=== PATIENT | female | born 1985 | race Caucasian/White ===

== ENCOUNTER 2017-01-08 23:01 | Emergency (ER) | payer OTHER ==
[~2017-01-08] VITALS: Ht 170.1 cm; Wt 86.2 kg
[~2017-01-08 23:01] MED LIST: ALBUTEROL0.09 MG/A2 IH; ALLEGRA180 MG PO; AMOXICILLIN500 MG PO; AMOXIL500 MG PO; ANAPROX DS550 MG PO; ASPIR-LOW81 MG PO; AUGMENTIN 875875 MG PO; BACTRIM DS 8001 TA1 PO; CIPRO500 MG PO; CLARITIN10 MG PO; CLINDAMYCIN HC300 MG PO; CYCLOBENZAPRINE5 M3 PO; DEPO PROVER150 MG/ML IM; DIFLUCAN100 MG PO; DIFLUCAN150 MG PO; DOXYCYCLINE100 MG PO; FLAGYL500 MG; FLEXERIL10 MG PO; FLONASE ALLERG9.9 ML NAS; FLONASE0.05 MG/AC NS; FLOVENT HFA12 GM IH; IBU-8800 MG PO; KEFLEX500 MG PO; LEVOFLOXACIN500 MG PO; MEDROL DOSEPAK4 MG PO; MOTRIN800 MG PO; NAPROXEN550 MG PO; NORCO 325 MG-51 TAB PO; PREDNISONE20 M1 PO; PREDNISONE20 MG PO; PREDNISONE50 MG PO; PROAIR RESPICL90 MCG INH; ROBITUSSIN AC 110 ML PO; SUDAFED60 MG PO; VICODIN 5-3001 EACH PO; VICODIN 5/500 505 MG PO; VICODIN 500 MG-1 TAB PO; VITAMIN C500 MG PO; ZOFRAN ODT4 MG SL; ZOVIRAX800 MG PO; [UNRECOGNIZED DRUG - REMARK]
[2017-01-08] MEDS ORDERED: CYCLOBENZAPRINE10 MG PO (23:12)
== END 2017-01-09 01:53 | disposition home or self-care (01) ==
LOC: ED 23:01
DX: S00.83XA Contusion of other part of head, initial encounter (principal); R03.0 Elevated blood-pressure reading, without diagnosis of hypertension; F17.200 Nicotine dependence, unspecified, uncomplicated; Z91.041 Radiographic dye allergy status; Z88.6 Allergy status to analgesic agent; Z91.040 Latex allergy status; W50.0XXA Accidental hit or strike by another person, initial encounter; Y93.89 Activity, other specified; Y92.89 Other specified places as the place of occurrence of the external cause; Y99.8 Other external cause status

== ENCOUNTER 2017-05-21 11:07 | Emergency (ER) | payer OTHER ==
[~2017-05-21] VITALS: Ht 170.1 cm; Wt 97.5 kg
[~2017-05-21 11:07] MED LIST changes: +CYCLOBENZAPRINE10 MG PO
[2017-05-21] MEDS ORDERED: MEDROL DOSEPAK4 MG PO (11:41)
[2017-05-21] MEDS ORDERED: NAPROSYN500 MG PO (11:41)
[2017-05-21] MEDS ORDERED: ORPHENADRINE E100 MG PO (11:41)
== END 2017-05-21 12:19 | disposition home or self-care (01) ==
LOC: ED 11:07
DX: S39.012A Strain of muscle, fascia and tendon of lower back, initial encounter (principal); F17.200 Nicotine dependence, unspecified, uncomplicated; Z98.890 Other specified postprocedural states; Z98.51 Tubal ligation status; Z91.040 Latex allergy status; Z88.6 Allergy status to analgesic agent; Z88.8 Allergy status to other drugs, medicaments and biological substances; Z91.041 Radiographic dye allergy status; X58.XXXA Exposure to other specified factors, initial encounter; Y93.89 Activity, other specified; Y92.89 Other specified places as the place of occurrence of the external cause; Y99.9 Unspecified external cause status

== ENCOUNTER 2018-01-27 14:08 | Emergency (ER) | payer OTHER ==
[~2018-01-27] VITALS: Ht 170.1 cm; Wt 108.9 kg
[~2018-01-27 14:08] MED LIST changes: +NAPROSYN500 MG PO; +ORPHENADRINE E100 MG PO
[2018-01-27] MEDS ORDERED: AUGMENTIN 875875 MG PO (14:42)
[2018-01-27] MEDS ORDERED: [UNRECOGNIZED DRUG - OTHER] IM (16:26)
== END 2018-01-27 16:32 | disposition home or self-care (01) ==
LOC: ED
DX: S61.451A Open bite of right hand, initial encounter (principal); F17.200 Nicotine dependence, unspecified, uncomplicated; Z23 Encounter for immunization; Z98.890 Other specified postprocedural states; Z98.51 Tubal ligation status; Z79.899 Other long term (current) drug therapy; Z91.041 Radiographic dye allergy status; Z91.040 Latex allergy status; Z88.6 Allergy status to analgesic agent; W54.0XXA Bitten by dog, initial encounter; Y93.89 Activity, other specified; Y92.89 Other specified places as the place of occurrence of the external cause; Y99.9 Unspecified external cause status

== ENCOUNTER 2018-01-30 09:04 | Emergency (ER) | payer OTHER ==
[~2018-01-30] VITALS: Ht 350.5 cm; Wt 108.9 kg
[~2018-01-30 09:04] MED LIST changes: +[UNRECOGNIZED DRUG - OTHER] IM
== END 2018-01-30 09:47 | disposition home or self-care (01) ==
LOC: ED 09:04
DX: Z23 Encounter for immunization (principal); R03.0 Elevated blood-pressure reading, without diagnosis of hypertension; J45.909 Unspecified asthma, uncomplicated; Z91.041 Radiographic dye allergy status; Z91.040 Latex allergy status; Z88.6 Allergy status to analgesic agent

== ENCOUNTER 2018-02-03 20:55 | Emergency (ER) | payer SELFPAY ==
[~2018-02-03] VITALS: Ht 162.5 cm; Wt 122.5 kg
== END 2018-02-03 21:11 | disposition home or self-care (01) ==
LOC: ED 20:55
DX: Z23 Encounter for immunization (principal); Z98.51 Tubal ligation status; Z98.890 Other specified postprocedural states; Z79.899 Other long term (current) drug therapy; Z91.040 Latex allergy status; Z91.041 Radiographic dye allergy status; Z88.6 Allergy status to analgesic agent; Z88.8 Allergy status to other drugs, medicaments and biological substances

== ENCOUNTER 2018-02-10 18:44 | Emergency (ER) | payer SELFPAY ==
[~2018-02-10] VITALS: Ht 170.1 cm; Wt 108.9 kg
[2018-02-10] MEDS ORDERED: CELEXA20 MG PO (19:28)
== END 2018-02-10 19:30 | disposition home or self-care (01) ==
LOC: ED 18:44
DX: Z23 Encounter for immunization (principal); Z98.890 Other specified postprocedural states; Z98.51 Tubal ligation status; Z79.899 Other long term (current) drug therapy; Z91.041 Radiographic dye allergy status; Z91.040 Latex allergy status; Z88.8 Allergy status to other drugs, medicaments and biological substances; Z88.6 Allergy status to analgesic agent

== ENCOUNTER 2018-06-30 16:26 | Emergency (ER) | payer SELFPAY ==
[~2018-06-30] VITALS: Ht 170.1 cm; Wt 105.7 kg
[~2018-06-30 16:26] MED LIST changes: +CELEXA20 MG PO
[2018-06-30] MEDS ORDERED: Zofran4 MG SL (17:19)
[2018-06-30] MEDS ORDERED: IMODIUM A-D2 M2 PO (17:19)
[2018-06-30] MEDS ORDERED: ACYCLOVIR400 MG PO (17:19)
[2018-06-30 17:27] LABS: BILIRUBIN NEGATIVE (NEGATIVE); BLOOD NEGATIVE (NEGATIVE); CLARITY CLEAR (CLEAR); COLOR YELLOW (YELLOW); GLUCOSE NEGATIVE (NEGATIVE); KETONE NEGATIVE (NEGATIVE); LEUKO ESTERASE NEGATIVE (NEGATIVE); NITRITE NEGATIVE (NEGATIVE); SPECIFIC GRAVITY 1.025 (1.005-1.030); UROBILINOGEN 0.2 E.U./dl (0.2-1.0)
[2018-06-30 17:32] LABS: BACTERIA 2+; RBC 0-2 rbc/hpf (0-2)
[2018-09-23] MEDS ORDERED: CORTISPORIN SUS10 ML OT (13:55)
[2018-09-23] MEDS ORDERED: PREDNISONE20 M1 PO (13:55)
== END 2018-06-30 18:08 | disposition home or self-care (01) ==
LOC: ED 16:26
PROVIDERS: Nurse Practitioner Family
DX: R19.7 Diarrhea, unspecified (principal); R30.0 Dysuria; B00.9 Herpesviral infection, unspecified; Z91.041 Radiographic dye allergy status; Z88.8 Allergy status to other drugs, medicaments and biological substances; Z91.040 Latex allergy status; Z79.899 Other long term (current) drug therapy; Z98.51 Tubal ligation status

== ENCOUNTER 2018-11-09 13:29 | Emergency (ER) | payer OTHER ==
[~2018-11-09] VITALS: Ht 170.1 cm; Wt 108.9 kg
[~2018-11-09 13:29] MED LIST changes: +ACYCLOVIR400 MG PO; +CORTISPORIN SUS10 ML OT; +IMODIUM A-D2 M2 PO; +Zofran4 MG SL
== END 2018-11-09 15:06 | disposition home or self-care (01) ==
LOC: ED 13:29
DX: S61.412A Laceration without foreign body of left hand, initial encounter (principal); Z91.041 Radiographic dye allergy status; Z91.040 Latex allergy status; Z88.6 Allergy status to analgesic agent; Z79.899 Other long term (current) drug therapy; W26.0XXA Contact with knife, initial encounter; Y93.89 Activity, other specified; Y92.89 Other specified places as the place of occurrence of the external cause; Y99.8 Other external cause status

== ENCOUNTER 2019-03-17 07:53 | Emergency (ER) | payer OTHER ==
[~2019-03-17] VITALS: Ht 170.1 cm; Wt 99.8 kg
[2019-03-17 08:37] LABS: BASO % 0.3 % (0.0-1.0); EOS # 0.1 10*3/uL (0.0-0.4); EOS % 1.6 % (1.0-4.0); HEMATOCRIT 41.1 % (37.0-47.0); HEMOGLOBIN 13.7 g/dl (12.0-16.0); LYMPH # 1.4 10*3/uL (1.3-4.4); MEAN CELL VOLUME 97.9 fl (81.0-99.0); MEAN CORPUSCULAR HGB 32.6 pg (27.0-31.0); MEAN CORPUSCULAR HGB CONC 33.3 g/dl (33.0-37.0); MEAN PLATELET VOLUME 10.2 fl (9.6-12.3); MONO # 0.6 10*3/uL (0.1-1.0); MONO % 10.3 % (3.0-9.0); NEUT # 4.1 10*3/uL (2.3-7.9); NEUT % 65.3 % (47.0-73.0); PLATELET COUNT AUTOMATED 259 10*3/uL (130-400); RED CELL DISTRI WIDTH 12.2 % (0-14.5); WHITE BLOOD COUNT 6.2 10*3/uL (4.8-10.8)
[2019-03-17 08:50] LABS: BILIRUBIN NEGATIVE (NEGATIVE); BLOOD 1+ (NEGATIVE); CLARITY SL CLOUDY (CLEAR); COLOR YELLOW (YELLOW); GLUCOSE NEGATIVE (NEGATIVE); KETONE TRACE (NEGATIVE); LEUKO ESTERASE NEGATIVE (NEGATIVE); NITRITE POSITIVE (NEGATIVE); SPECIFIC GRAVITY >= 1.030 (1.005-1.030); UROBILINOGEN 0.2 E.U./dl (0.2-1.0)
[2019-03-17 08:53] LABS: ALBUMIN 3.7 gm/dl (3.1-4.5); ALKALINE PHOSPHATASE 86 U/L (45-117); BUN 10 mg/dl (7-24); CHLORIDE 107 mmol/L (98-107); CREATININE 0.89 mg/dL (0.55-1.02); LIPASE 55 U/L (73-393); POTASSIUM 3.7 mmol/L (3.5-5.1); SGOT/AST 14 IU/L (3-35); SGPT/ALT 22 U/L (12-78); SODIUM 138 mmol/L (136-145)
[2019-03-17 08:57] LABS: BACTERIA 3+; EPITHELIAL CELLS 16-20
[2019-03-17] MEDS ORDERED: ATARAX,VISTARIL10 MG PO (08:58)
[2019-03-17] MEDS ORDERED: PHENERGAN25 M3 PO (10:17)
== END 2019-03-17 11:07 | disposition home or self-care (01) ==
LOC: ED 07:53
PROVIDERS: Emergency Medicine
DX: K52.9 Noninfective gastroenteritis and colitis, unspecified (principal); R55 Syncope and collapse; H53.8 Other visual disturbances; J45.909 Unspecified asthma, uncomplicated; Z79.899 Other long term (current) drug therapy; Z88.8 Allergy status to other drugs, medicaments and biological substances; Z88.6 Allergy status to analgesic agent; Z91.040 Latex allergy status; Z91.041 Radiographic dye allergy status

== ENCOUNTER 2019-05-16 08:58 | Emergency (ER) | payer OTHER ==
[~2019-05-16] VITALS: Ht 170.1 cm; Wt 90.7 kg
[~2019-05-16 08:58] MED LIST changes: +ATARAX,VISTARIL10 MG PO; +PHENERGAN25 M3 PO
[2019-05-16] MEDS ORDERED: ZITHROMAX250 MG PO (11:58)
[2019-05-16] MEDS ORDERED: PREDNISONE50 MG PO (11:58)
[2019-05-16] MEDS ORDERED: ZYRTEC10 MG PO (11:58)
== END 2019-05-16 12:00 | disposition home or self-care (01) ==
LOC: ED 08:58
DX: J20.9 Acute bronchitis, unspecified (principal); J01.90 Acute sinusitis, unspecified; Z88.8 Allergy status to other drugs, medicaments and biological substances; Z91.041 Radiographic dye allergy status; Z91.048 Other nonmedicinal substance allergy status; Z88.6 Allergy status to analgesic agent; Z91.040 Latex allergy status; Z79.899 Other long term (current) drug therapy; Z90.49 Acquired absence of other specified parts of digestive tract

== ENCOUNTER 2019-12-30 13:51 | Emergency (ER) | payer OTHER ==
[~2019-12-30] VITALS: Ht 170.1 cm; Wt 95.3 kg
[~2019-12-30 13:51] MED LIST changes: +ZITHROMAX250 MG PO; +ZYRTEC10 MG PO
[2019-12-30] MEDS ORDERED: REGLAN10 M1 PO (14:29)
== END 2019-12-30 15:59 | disposition home or self-care (01) ==
LOC: ED 13:51
DX: B34.9 Viral infection, unspecified (principal); G43.909 Migraine, unspecified, not intractable, without status migrainosus; Z88.8 Allergy status to other drugs, medicaments and biological substances; Z91.040 Latex allergy status; Z79.899 Other long term (current) drug therapy; Z90.49 Acquired absence of other specified parts of digestive tract

== ENCOUNTER 2022-05-27 20:14 | Emergency (ER) | payer OTHER ==
[~2022-05-27] VITALS: Ht 170.1 cm; Wt 108.9 kg
[~2022-05-27 20:14] MED LIST changes: +REGLAN10 M1 PO
== END 2022-05-28 00:36 | disposition home or self-care (01) ==
LOC: ED 20:14
DX: S82.402A Unspecified fracture of shaft of left fibula, initial encounter for closed fracture (principal); R51.9 Headache, unspecified; Z88.8 Allergy status to other drugs, medicaments and biological substances; Z91.040 Latex allergy status; Z79.899 Other long term (current) drug therapy; Z98.51 Tubal ligation status; Z98.890 Other specified postprocedural states; Z90.49 Acquired absence of other specified parts of digestive tract; W06.XXXA Fall from bed, initial encounter; Y93.89 Activity, other specified; Y92.89 Other specified places as the place of occurrence of the external cause; Y99.8 Other external cause status

== ENCOUNTER → 2022-10-15 | Outpatient (CLI) | payer OTHER ==
[2022-10-15 11:59] LABS: BASO % 0.2 % (0.0-1.0); EOS # 0.1 10*3/uL (0.0-0.4); EOS % 2.4 % (1.0-4.0); HEMATOCRIT 42.1 % (37.0-47.0); LYMPH # 1.4 10*3/uL (1.3-4.4); LYMPH % 30.7 % (27.0-41.0); MEAN CELL VOLUME 94.6 fl (81.0-99.0); MEAN CORPUSCULAR HGB 31.5 pg (27.0-31.0); MEAN CORPUSCULAR HGB CONC 33.3 g/dl (33.0-37.0); MEAN PLATELET VOLUME 9.7 fl (9.6-12.3); MONO # 0.4 10*3/uL (0.1-1.0); MONO % 8.9 % (3.0-9.0); NEUT # 2.7 10*3/uL (2.3-7.9); NEUT % 57.6 % (47.0-73.0); PLATELET COUNT AUTOMATED 327 10*3/uL (130-400); RED BLOOD COUNT 4.45 10*6/uL (4.10-5.10); RED CELL DISTRI WIDTH 11.9 % (0-14.5); RETICULOCYTE % 1.31 % (0.50-2.50); WHITE BLOOD COUNT 4.6 10*3/uL (4.8-10.8)
[2022-10-15 12:02] LABS: BILIRUBIN Negative (Negative); BLOOD Negative (Negative); CLARITY Clear (Clear); COLOR Yellow (Yellow); GLUCOSE Negative (Negative); KETONE Negative (Negative); LEUKO ESTERASE Negative (Negative); NITRITE Negative (Negative); UROBILINOGEN 0.2 E.U./dl (0.0-1.0)
[2022-10-15 12:16] LABS: ALKALINE PHOSPHATASE 104 U/L (46-116); BACTERIA TRACE; BUN 7 mg/dl (9-23); CHLORIDE 107 mmol/L (98-107); CHOLESTEROL 166 mg/dL (<200); LDL CHOLESTEROL 98 mg/dL (9-159); POTASSIUM 3.9 mmol/L (3.4-5.1); SGPT/ALT 13 U/L (10-49); T3 UPTAKE 24.2 % (22.4-36.7); THYROID STIM HORMONE (HS) 1.778 uIU/ml (0.550-4.780); THYROXINE (T4) TOTAL 10.3 ug/dl (4.5-10.9); TOTAL PROTEIN 7.9 gm/dL (6.0-8.0); TRIGLYCERIDES 60 mg/dl (<150); WBC 0-2 wbc/hpf (0-5)
[2022-10-15 12:17] LABS: GAMMA GLUTAMYL TRANSPEPTIDASE < 7 U/L (0-73)
[2022-10-16 06:07] LABS: HBSAG Negative (Negative); HEP B CORE AB, IGM Negative (Negative); HEPATITIS C ANTIBODY <0.1 (0.0-0.9)
== END | disposition home or self-care (01) ==
LOC: LAB 11:19
PROVIDERS: ATTEND Family Medicine
DX: E78.5 Hyperlipidemia, unspecified (principal); E55.9 Vitamin D deficiency, unspecified; R79.89 Other specified abnormal findings of blood chemistry; R53.83 Other fatigue; R74.8 Abnormal levels of other serum enzymes

== ENCOUNTER 2023-08-20 07:22 | Emergency (ER) | payer OTHER ==
[2023-08-20 08:34] LABS: BASO % 0.1 % (0.0-1.0); EOS % 0.1 % (1.0-4.0); HEMATOCRIT 45.1 % (37.0-47.0); LYMPH # 1.5 10*3/uL (1.3-4.4); MEAN CELL VOLUME 95.1 fl (81.0-99.0); MEAN CORPUSCULAR HGB 31.4 pg (27.0-31.0); MEAN PLATELET VOLUME 9.5 fl (9.6-12.3); MONO # 0.2 10*3/uL (0.1-1.0); MONO % 2.3 % (3.0-9.0); NEUT # 7.2 10*3/uL (2.3-7.9); NEUT % 80.1 % (47.0-73.0); PLATELET COUNT AUTOMATED 324 10*3/uL (130-400); RED BLOOD COUNT 4.74 10*6/uL (4.10-5.10); RED CELL DISTRI WIDTH 12.5 % (0-14.5); WHITE BLOOD COUNT 8.9 10*3/uL (4.8-10.8)
[2023-08-20 08:50] LABS: ACT PARTIAL THROMBO TIME 28.3 SECONDS (20.0-32.1)
[2023-08-20 09:41] LABS: BILIRUBIN Negative (Negative); BLOOD Negative (Negative); CLARITY Clear (Clear); COLOR Yellow (Yellow); GLUCOSE Negative (Negative); KETONE Negative (Negative); LEUKO ESTERASE Negative (Negative); NITRITE Negative (Negative); PH 5.5 (4.5-8.0); UROBILINOGEN 0.2 E.U./dl (0.0-1.0)
[2023-08-20 09:46] LABS: ALKALINE PHOSPHATASE 130 U/L (46-116); BUN 7 mg/dl (9-23); CHLORIDE 105 mmol/L (98-107); ETHYL ALCOHOL 298.4 mg/dl (<3); LIPASE 28 U/L (12-53); POTASSIUM 3.7 mmol/L (3.4-5.1); SGPT/ALT 22 U/L (5-49); TOTAL PROTEIN 8.3 gm/dL (6.0-8.0)
[2023-08-20 09:49] LABS: URINE AMPHETAMINES Negative (1000ng/ml); URINE BARBITURATES Negative (200ng/ml); URINE BENZODIAZEPINES Negative (200ng/ml); URINE CANNABINOIDS (THC) Negative (50ng/ml); URINE COCAINE Negative (300ng/ml); URINE METHADONE Negative (300ng/ml); URINE OPIATES Negative (300ng/ml); URINE PHENCYCLIDINE Negative (25ng/ml)
[2023-08-20 09:56] LABS: BACTERIA 2+; EPITHELIAL CELLS 0-2
[2023-08-20 09:57] LABS: WBC 0-2 wbc/hpf (0-5)
== END 2023-08-20 10:19 | disposition home or self-care (01) ==
LOC: ED 07:22
PROVIDERS: Family Medicine
DX: F10.129 Alcohol abuse with intoxication, unspecified (principal); R40.4 Transient alteration of awareness; G43.909 Migraine, unspecified, not intractable, without status migrainosus; Z88.8 Allergy status to other drugs, medicaments and biological substances; Z91.041 Radiographic dye allergy status; Z88.6 Allergy status to analgesic agent; Z91.040 Latex allergy status; Z98.51 Tubal ligation status; Z90.89 Acquired absence of other organs; Z79.899 Other long term (current) drug therapy; Y90.0 Blood alcohol level of less than 20 mg/100 ml

== ENCOUNTER 2024-03-29 09:35 | Emergency (ER) | payer OTHER ==
[2024-03-29] MEDS ORDERED: Metoclopramide Hydrochloride 10 MG/2 ML AMP IV ONE (10:05)
[2024-03-29] MEDS ORDERED: Acetaminophen/Hydrocodone 5 MG/325 MG TABLET PO ONE (10:05)
[2024-03-29] MEDS ORDERED: diphenhydrAMINE hydrochloride 50 MG/ML VIAL IV ONE (10:05)
[2024-03-29] MEDS ORDERED: SODIUM CHLORIDE 0.9% 1,000 ML IV ONE (10:05)
[2024-03-29] MEDS ORDERED: ZITHROMAX250 MG PO (10:06)
[2024-03-29] MEDS ORDERED: AZITHROMYCIN 250 MG TAB PO ONE (10:10)
[2024-03-29 10:11] LABS: HEMATOCRIT 37.7 % (37.0-47.0); MEAN CELL VOLUME 93.8 fl (81.0-99.0); MEAN CORPUSCULAR HGB 31.6 pg (27.0-31.0); MEAN CORPUSCULAR HGB CONC 33.7 g/dl (33.0-37.0); MEAN PLATELET VOLUME 9.4 fl (9.6-12.3); PLATELET COUNT AUTOMATED 261 10*3/uL (130-400); RED BLOOD COUNT 4.02 10*6/uL (4.10-5.10); RED CELL DISTRI WIDTH 12.7 % (0-14.5); WHITE BLOOD COUNT 24.6 10*3/uL (4.8-10.8)
[2024-03-29 10:16] LABS: MANUAL DIFF REFLEX YES
[2024-03-29 10:30] LABS: BUN 8 mg/dl (9-23); BURR CELLS FEW; CHLORIDE 101 mmol/L (98-107); POLYCHROMASIA SLIGHT; POTASSIUM 3.4 mmol/L (3.4-5.1); ROULEAUX SLIGHT; TOTAL CELLS COUNTED 100 #CELLS
[2024-03-29 10:31] LABS: PLATELET SUFFICIENCY NORMAL (NORMAL)
[2024-03-29] MEDS ORDERED: Ceftriaxone Sodium 1 GM/10 ML SYR IV ONE (13:50)
== END 2024-03-29 14:38 | disposition home or self-care (01) ==
LOC: ED 09:35
PROVIDERS: Nurse Practitioner Family
DX: J02.9 Acute pharyngitis, unspecified (principal); D72.829 Elevated white blood cell count, unspecified; Z91.041 Radiographic dye allergy status; Z91.040 Latex allergy status; Z88.6 Allergy status to analgesic agent; Z88.8 Allergy status to other drugs, medicaments and biological substances; Z90.49 Acquired absence of other specified parts of digestive tract; Z98.51 Tubal ligation status; Z90.89 Acquired absence of other organs; Z98.890 Other specified postprocedural states; G43.909 Migraine, unspecified, not intractable, without status migrainosus